=== PATIENT | female | born 1990 | race American Indian/Alaskan Native ===

== ENCOUNTER 2017-03-20 20:41 | Emergency (ER) | payer MEDICAID ==
[2017-03-20 20:49] VITALS: BP 124/92
[2017-03-20] MEDS ORDERED: Ondansetron 4 MG Tab.DIS PO ONE (21:27)
--- NOTE | 2017-03-20 21:35 | EDM.PDOC ---
ED HPI GENERAL MEDICAL PROBLEM - General Chief Complaint: Abdominal Pain Stated Complaint: VOMITING Time Seen by Provider: 03/20/17 21:15 Source of Information: Reports: Patient History Limitations: Reports: No Limitations - History of Present Illness INITIAL COMMENTS - FREE TEXT/NARRATIVE: Patient is a 26-year-old female who presents to the ED complaining of nausea and vomiting that started at approx 1700 hrs today. Patient states she's been vomiting every half hour or so. States she has not been able to keep any liquids down. Last meal was 1 hr prior to onset of vomiting. States it was [employer]. Nothing unusual eaten. Thus denies any recent ingestion of bad or questionable food. States daughter had similar symptoms Thursday that lasted 18 hrs. Patient denies fever/chills, chest pain, pre-syncope, dysuria, SOB, blood in stool, or any additional complaints. With admission to the ED patient has been vomiting only small amounts of stomach contents. Treatments SCRIPT COORDINATOR: Reports: Other (see below) Other Treatments SCRIPT COORDINATOR: tums;pepto bismol;sprite Abdomen Pain Score (Numeric/FACES): 4 - Related Data Allergies Allergy/AdvReac Type Severity Reaction Status Date / Time amoxicillin Allergy Cannot Verified 06/14/16 01:58 Remember Home Meds: Home Meds Ondansetron [Zofran ODT] 4 mg PO Q6H PRN #12 tab.dis 03/20/17 [Rx] Past Medical History - Past Health History Medical/Surgical History: Denies Medical/Surgical History HEENT History: Reports: Other (See Below) Other HEENT History: wears contacts [employer] History: Reports: Social & Family History - Family History Family Medical History: Noncontributory - Tobacco Use Smoking Status *Q: Current Some Day Smoker Years of Tobacco use: 2 Packs/Tins Daily: 0.1 Used Tobacco, but Quit: Yes Month Tobacco Last Used: May Second Hand Smoke Exposure: No - Caffeine Use Caffeine Use: Reports: Coffee - Alcohol Use Days Per Week of Alcohol Use: 0 Number of Drinks Per Day: 0 Total Drinks Per Week: 0 - Recreational Drug Use Recreational Drug Use: No - Living Situation & Occupation Living situation: Reports: Single, with Significant Other Occupation: Employed ED ROS GENERAL - Review of Systems Review Of Systems: See Below Constitutional: Reports: Weakness, Decreased Appetite. Denies: Fever, Chills HEENT: Reports: No Symptoms Respiratory: Denies: Shortness of Breath, Cough, Sputum Cardiovascular: Denies: Chest Pain, Dyspnea on Exertion, Palpitations, Syncope GI/Abdominal: Reports: Abdominal Pain (with vomiting. ), Decreased Appetite, Nausea, Vomiting. Denies: Black Stool, Bloody Stool, Diarrhea (stools are soft) , Difficulty Swallowing, Hematemesis, Hematochezia, Melena : Denies: Dysuria, Flank Pain, Frequency, Hematuria, Urgency, Urinary Retention Musculoskeletal: Reports: No Symptoms Neurological: Reports: No Symptoms ED EXAM, GI/ABD - Physical Exam Exam: See Below Exam Limited By: No Limitations General Appearance: Alert, WD/WN, Mild Distress Ears: Hearing Grossly Normal Nose: Normal Inspection Throat/Mouth: Normal Voice, No Airway Compromise Neck: Normal Inspection, Supple Respiratory/Chest: No Respiratory Distress, Lungs Clear, Normal Breath Sounds, No Accessory Muscle Use, Chest Non-Tender Cardiovascular: Normal Peripheral Pulses, Regular Rate, Rhythm, No Murmur GI/Abdominal Exam: Normal Bowel Sounds, Soft, Non-Tender, No Organomegaly, No Distention Back Exam: Normal Inspection Neurological: Alert, Oriented, CN II-XII Intact, Normal Cognition, No Motor/ Sensory Deficits Psychiatric: Normal Affect, Normal Mood Skin Exam: Warm, Dry, Intact, Normal Color Course - Vital Signs Last Recorded V/S: Last Vital Signs Temp 97.6 F 03/20/17 20:49 Pulse 95 03/20/17 20:49 Resp 20 03/20/17 20:49 BP 124/92 H 03/20/17 20:49 Pulse Ox 99 03/20/17 20:49 - Orders/Labs/Meds Meds: Medications Discontinued Medications Generic Name Dose Route Start Last Admin Trade Name Markq PRN Reason Stop Dose Admin Ondansetron HCl 4 mg 03/20/17 21:27 03/20/17 21:35 Zofran Odt PO 03/20/17 21:28 4 mg ONETIME ONE Administration - Re-Assessments/Exams Free Text/Narrative Re-Assessment/Exam: Daughter has had similar symptoms this past week. Examination findings were benign. Etiology current complaint gastroenteritis. Does have ordered Zofran 4 mg ODT. I've offered to establish an IV, obtain blood work, and provide IV fluids to which she refused. 03/20/17 22:17 Reassessment, symptoms have resolved. Patient is ready to go home. Departure - Departure Time of Disposition: 22:18 Disposition: Home, Self-Care 01 Condition: Good Clinical Impression: Gastroenteritis - Discharge Information Prescriptions: Ondansetron [Zofran ODT] 4 mg PO Q6H PRN #12 tab.dis PRN Reason: Nausea/Vomiting Referrals: PCP,None [Primary Care Provider] - Forms: ED Department Discharge, ED Return to Work/School Form Additional Instructions: Take the Zofran as prescribed for nausea and vomiting as needed. For the next 24 hours sip on small amounts of liquid (Pedialyte, Gatorade, Powerade). Refrain from fruit Juices or soda. Tomorrow morning advance to a bland diet if able for the next 24 hrs. Advance to normal diet as tolerated thereafter. Follow -up with PCP as needed first part of next week. Return to ED for any new or worsening symptoms.
== END 2017-03-20 22:44 | disposition home or self-care (01) ==
LOC: JD.ED 20:41
DX: K52.9 Noninfective gastroenteritis and colitis, unspecified (principal); F17.210 Nicotine dependence, cigarettes, uncomplicated; Z88.1 Allergy status to other antibiotic agents
CPT/HCPCS: 99284; A9270; 99283

== ENCOUNTER 2021-09-02 18:53 | Inpatient (IN) | payer BC, MEDICAID ==
[2021-09-02] MEDS ORDERED: Ondansetron 4 MG/2 ML SDV IVPUSH PRN (19:44)
[2021-09-02] MEDS ORDERED: Sodium Chloride 0.9% 10 ML Syringe FLUSH PRN (19:44)
[2021-09-02] MEDS ORDERED: Nalbuphine 10 MG/1 ML Vial IVPUSH PRN (19:44)
[2021-09-02] MEDS ORDERED: Calcium Carbonate 500 MG Tab.Chew PO PRN (19:44)
[2021-09-02] MEDS ORDERED: Oxytocin/Lactated Ringers 10 UNIT/1,000 ML BAG IV SCH ×2 (19:45)
[2021-09-02] MEDS: Lactated Ringers 1,000 ML IV SCH (20:28)
[2021-09-02] MEDS: Sodium Chloride 0.9% 10 ML Syringe FLUSH SCH (21:07)
[2021-09-03] MEDS ORDERED: Phenylephrine/Normal Saline 100 MCG/ML 10 ML Syringe ONE
[2021-09-03] MEDS ORDERED: Bupivacaine 0.25% 10 ML SDV ONE
[2021-09-03] MEDS: Lactated Ringers 1,000 ML IV SCH ×3 (04:32→07:42)
[2021-09-03] MEDS ORDERED: ePHEDrine 50 MG/ML SDV IVPUSH PRN (04:58)
[2021-09-03] MEDS ORDERED: fentaNYL 100 MCG/2 ML SDV EPIDUR PRN (04:58)
[2021-09-03] MEDS ORDERED: diphenhydrAMINE 50 MG/ML SDV IVPUSH PRN (04:58)
[2021-09-03] MEDS ORDERED: Bupivacaine/fentaNYL/NS 100 ML Bag EPIDUR PRN (04:58)
[2021-09-03] MEDS ORDERED: Sertraline 50 MG Tab PO SCH (09:00)
[2021-09-03] MEDS ORDERED: Acetaminophen 325 MG Tab PO PRN (10:12)
[2021-09-03] MEDS ORDERED: Benzocaine/Menthol 20%-0.5% Spray 78 GM Cannister TOP PRN (10:12)
[2021-09-03] MEDS ORDERED: Docusate Sodium 100 MG Cap PO PRN (10:12)
[2021-09-03] MEDS ORDERED: Ibuprofen 600 MG Tab PO PRN (10:12)
[2021-09-03] MEDS ORDERED: Witch Hazel Medicated Pads 40/Jar TOP PRN (10:12)
[2021-09-03] MEDS: Prenatal Multivitamin with Calcium/Folic Acid/Iron Tab PO SCH (11:09)
[2021-09-03] MEDS: Sodium Chloride 0.9% 10 ML Syringe FLUSH SCH (11:34)
[2021-09-04] MEDS: Prenatal Multivitamin with Calcium/Folic Acid/Iron Tab PO SCH (09:21)
[2021-09-04 11:19] VITALS: BP 123/73; PULSE 60
[2021-09-05] MEDS ORDERED: Sertraline 50 MG Tab PO SCH (09:00)
== END 2021-09-04 16:00 | disposition home or self-care (01) | DRG 560 ==
LOC: JD.OB 18:53 → OBSVTOIN 09-03 08:38 → JD.MS 09-03 08:38 → JD.OB 09-03 18:09 → JD.MS 09-04 14:10
PROVIDERS: ADMIT Obstetrics & Gynecology; ATTEND Obstetrics & Gynecology
PROC: 10E0XZZ Delivery of Products of Conception, External Approach (ICD-10-PCS; principal; 2021-09-03)
PROC: 10907ZC Drainage of Amniotic Fluid, Therapeutic from Products of Conception, Via Natural or Artificial Opening (ICD-10-PCS; 2021-09-03)
PROC: 3E033VJ Introduction of Other Hormone into Peripheral Vein, Percutaneous Approach (ICD-10-PCS; 2021-09-03)
PROC: 3E0R3BZ Introduction of Anesthetic Agent into Spinal Canal, Percutaneous Approach (ICD-10-PCS; 2021-09-03)
PROC: 00HU33Z Insertion of Infusion Device into Spinal Canal, Percutaneous Approach (ICD-10-PCS; 2021-09-03)
DX: O99.344 Other mental disorders complicating childbirth (principal); Z37.0 Single live birth; F41.9 Anxiety disorder, unspecified; F32.A Depression, unspecified; O99.62 Diseases of the digestive system complicating childbirth; K21.9 Gastro-esophageal reflux disease without esophagitis; O69.81X0 Labor and delivery complicated by cord around neck, without compression, not applicable or unspecified; O76 Abnormality in fetal heart rate and rhythm complicating labor and delivery; Z20.822 Contact with and (suspected) exposure to COVID-19; Z3A.39 39 weeks gestation of pregnancy; Z88.0 Allergy status to penicillin; Z79.899 Other long term (current) drug therapy; Z87.891 Personal history of nicotine dependence; Z86.16 Personal history of COVID-19
CPT/HCPCS: 01967; 36415; 51702; 59025; 59409; 85025; 86592; A9270-GY; J2370; J2590; J3010; J3490; J7120; U0002

== ENCOUNTER 2023-12-17 00:24 | Inpatient (IN) | payer SELFPAY ==
[2023-12-17] MEDS: Lactated Ringers 1,000 ML IV SCH (00:41)
[2023-12-17] MEDS ORDERED: Ondansetron 4 MG/2 ML SDV IVPUSH PRN (00:41)
[2023-12-17] MEDS ORDERED: Lidocaine 1% 50 ML MDV INJECT PRN (00:41)
[2023-12-17] MEDS ORDERED: Nalbuphine 10 MG/ML Syringe IVPUSH PRN (00:41)
[2023-12-17] MEDS ORDERED: Sodium Chloride 0.9% 10 ML Syringe FLUSH PRN (00:41)
[2023-12-17] MEDS ORDERED: Oxytocin/Lactated Ringers 30 UNIT/500 ML BAG IV SCH (00:45)
[2023-12-17 01:03] LABS: BASOPHILS ABSOLUTE AUTO 0.1 K/mm3 (0.0-0.2); BASOPHILS PERCENT AUTO 0.3 % (0.0-1.0); EOSINOPHILS PERCENT AUTO 0.2 % (0.0-6.0); HEMATOCRIT 37.6 % (37.0-47.0); HEMOGLOBIN 12.7 gm/dl (12.0-16.0); IMMATURE GRAN ABSOLUTE AUTO 0.11 K/mm3 (0.00-0.05); IMMATURE GRAN PERCENT AUTO 0.6 % (0.0-0.4); LYMPHOCYTES ABSOLUTE AUTO 3.6 K/mm3 (1.0-4.8); LYMPHOCYTES PERCENT AUTO 19.9 % (24.0-44.0); MEAN CORPUSCULAR HEMOGLOBIN 32.1 pg (28.0-32.0); MEAN CORPUSCULAR HGB CONC 33.8 g/dl (32.0-36.0); MEAN CORPUSCULAR VOLUME 94.9 fl (83.0-99.0); MEAN PLATELET VOLUME 9.4 fl (9.4-12.3); MONOCYTES ABSOLUTE AUTO 1.1 K/mm3 (0.0-0.8); NEUTROPHILS ABSOLUTE AUTO 13.2 K/mm3 (1.8-7.7); PLATELET COUNT,PLT 307 K/mm3 (150-400); RED BLOOD CELL COUNT 3.96 M/mm3 (4.10-5.30); WHITE BLOOD CELL COUNT,WBC 18.03 K/mm3 (3.9-11.3)
[2023-12-17] MEDS: Oxytocin/Lactated Ringers 30 UNIT/500 ML BAG IV SCH (01:05)
[2023-12-17] MEDS ORDERED: Acetaminophen 325 MG Tab PO PRN (03:07)
[2023-12-17] MEDS: Witch Hazel Medicated Pads 40/Jar TOP PRN (03:15)
[2023-12-17] MEDS: Ibuprofen 600 MG Tab PO SCH (03:16)
[2023-12-17] MEDS: Benzocaine/Menthol 20%-0.5% Spray 78 GM Cannister TOP PRN (03:16)
[2023-12-17] MEDS ORDERED: Sodium Chloride 0.9% 10 ML Syringe FLUSH SCH (09:00)
[2023-12-17] MEDS: Measles, Mumps & Rubella Vaccine 0.5 ML SDV SUBCUT ONE (16:37)
[2023-12-18 15:35] VITALS: BP 99/55; PULSE 74
== END 2023-12-18 15:00 | disposition home or self-care (01) | DRG 807 ==
LOC: JD.OBCHECK 00:24 → JD.OB 00:30 → JD.OBCHECK 00:42 → OBSVTOIN 01:01 → JD.OB 01:02
PROVIDERS: ADMIT Family Medicine; ATTEND Family Medicine
PROC: 10E0XZZ Delivery of Products of Conception, External Approach (ICD-10-PCS; principal; 2023-12-17)
DX: O99.344 Other mental disorders complicating childbirth (principal); Z37.0 Single live birth; F32.A Depression, unspecified; Z88.0 Allergy status to penicillin; Z3A.38 38 weeks gestation of pregnancy; O77.0 Labor and delivery complicated by meconium in amniotic fluid
CPT/HCPCS: 36415; 59025; 59409; 85025; 86592; 86850; 86900; 86901; A9270-GY; J7120; J7999